=== PATIENT | male | born 1980 | race Caucasian/White ===

== ENCOUNTER 2019-09-03 12:48 | Emergency (ER) | payer MEDICAID ==
[~2019-09-03] VITALS: Ht 172.7 cm; Wt 75.0 kg
[2019-09-03] MEDS ORDERED: BACITRACIN ZINC OINT UDPKT TOP ONE (14:45)
[2019-09-03] MEDS ORDERED: TETANUS, DIPHTHERIA, PERTUSSIS VAC/PF 0.5ML (>7YR OLD) IM ONE (14:45)
[2019-09-03] MEDS ORDERED: ACETAMINOPHEN 325MG TABLET PO ONE (15:00)
[2019-09-03 15:40] VITALS: BP 128/74
== END 2019-09-03 15:45 | disposition home or self-care (01) ==
LOC: ER 12:48
DX: S01.81XA Laceration without foreign body of other part of head, initial encounter (principal); Y35.813A Legal intervention involving manhandling, suspect injured, initial encounter; W01.198A Fall on same level from slipping, tripping and stumbling with subsequent striking against other object, initial encounter; Y93.89 Activity, other specified; Y92.89 Other specified places as the place of occurrence of the external cause; I10 Essential (primary) hypertension; Z23 Encounter for immunization
CPT/HCPCS: 12013; 90471; 90715; 99283